=== PATIENT | female | born 1945 | race Caucasian/White ===

== ENCOUNTER 2018-07-07 11:27 | Day surgery (SDC) | payer MEDICARE, OTHER ==
[~2018-07-07 11:27] MED LIST: CEFAZOLIN 2 Gram 2 GM/50 ML BAG IVPB ONE; FAMOTIDINE 20MG TABLET PO ONE; METOCLOPRAMIDE 10 MG TABLET PO ONE
[2018-07-07] MEDS ORDERED: ACETAMINOPHEN 1,000 MG/100 ML BTL IV ONE (11:28)
[2018-07-07] MEDS ORDERED: ONDANSETRON HCL IV 4 MG/2 ML VIAL IVP ONE (11:28)
[2018-07-07] MEDS ORDERED: SEVOFLURANE 250 ML INH ONE (11:28)
[2018-07-07] MEDS ORDERED: DEXAMETHASONE 4 MG/ML 1ML VIAL IVP ONE (11:28)
[2018-07-07] MEDS ORDERED: FENTANYL PF 100MCG/2ML VIAL IV ONE (11:28)
[2018-07-07] MEDS ORDERED: LIDOCAINE 2% MDV (20MG/ML) 20ML VIAL IV ONE (11:28)
[2018-07-07] MEDS ORDERED: BUPIVACAINE 0.25% W/EPI MPF 30ML VIAL IVP ONE (11:28)
[2018-07-07] MEDS ORDERED: MIDAZOLAM HCL 2MG/2ML VIAL IV ONE (11:28)
[2018-07-07] MEDS ORDERED: BACITRACIN 50,000 UNIT VIAL IM ONE (11:28)
[2018-07-07] MEDS ORDERED: PROPOFOL 10 MG/ML VIAL IV ONE (11:28)
[2018-07-07] MEDS: BUPIVACAINE 0.25% W/EPI MPF 30ML VIAL SQ ONE (13:50)
== END 2018-07-07 15:25 | disposition home or self-care (01) ==
LOC: SUR 11:27
PROVIDERS: ATTEND Urology
DX: N39.3 Stress incontinence (female) (male) (principal); I10 Essential (primary) hypertension; E03.9 Hypothyroidism, unspecified; K31.9 Disease of stomach and duodenum, unspecified; G25.81 Restless legs syndrome; M19.90 Unspecified osteoarthritis, unspecified site; I21.4 Non-ST elevation (NSTEMI) myocardial infarction
CPT/HCPCS: C1771; J2405